=== PATIENT | male | born 1985 | race Hispanic/Latino ===

== ENCOUNTER 2018-07-19 02:19 | Emergency (ER) | payer OTHER, SELFPAY ==
[2018-07-19 02:46] LABS: #Basophils 0.1 thou/uL (0.0-0.2); #Eosinphils 0.2 thou/uL (0.0-0.7); #Lymphocytes 4.9 thou/uL (1.20-3.40); #Monocytes 0.7 thou/uL (0.11-0.59); #Neutrophils 5.4 thou/uL (1.40-6.50); %Basophils 0.8 % (0.0-1.0); %Eosinophils 2.2 % (0.0-10.0); %Lymphocytes 43.2 % (21.0-51.0); %Monocytes 6.4 % (0.0-10.0); %Neutrophils 47.5 % (42.0-75.0); Mean Corpuscular HGB CONC 33.9 g/dL (32.0-36.0); Mean Corpuscular Hemoglobin 29.8 pg (27.0-31.0); Mean Corpuscular Volume 87.9 fL (78.0-98.0); Mean Platelet Volume 9.2 fL (7.4-10.4); Platelet Count 178 thou/uL (130-400); RBC Distribution Width 12.9 % (11.5-14.5); Red Blood Cell (RBC) Count 5.03 mill/uL (4.70-6.10); White Blood Cell (WBC) Count 11.4 thou/uL (4.8-10.8)
[2018-07-19 03:08] LABS: ALT (SGPT) 20 U/L (8-55); AST (SGOT) 12 U/L (5-34); Albumin 4.4 g/dL (3.5-5.0); Alkaline Phosphatase 66 U/L (40-150); Anion Gap 13 mmol/L (10-20); BUN (Urea Nitrogen) 18 mg/dL (8.9-20.6); Bilirubin, Total 0.8 mg/dL (0.2-1.2); Calc. Creatinine Clearance 0 mL/min (70-130); Calcium 9.7 mg/dL (7.8-10.44); Carbon Dioxide 28 mmol/L (22-29); Chloride 104 mmol/L (98-107); Estimated GFR-MDRD 88; Globulin 3.2 g/dL (2.4-3.5); Glucose 112 mg/dL (70-105); Potassium 3.7 mmol/L (3.5-5.1); Protein, Total 7.6 g/dL (6.0-8.3); Sodium 141 mmol/L (136-145)
[2018-07-19] MEDS ORDERED: Ketorolac Tromethamine 30 MG/ML VIAL ONE (03:28)
[2018-07-19] MEDS ORDERED: Ondansetron PF 4 MG/2 ML Vial ONE (03:28)
[2018-07-19] MEDS ORDERED: Morphine 4 MG/ML VIAL ONE (04:07)
[2018-07-19 04:38] LABS: Bilirubin Negative (Negative); Blood, Urine Large (Negative); Clarity CLOUDY (Clear); Glucose, Urine (Dipstick) Negative (Negative); Leukocyte Negative (Negative); Nitrite Negative (Negative); Protein, Urine (Dipstick) Trace mg/dL (Neg-Trace); Specific Gravity, Urine 1.027 (1.002-1.036)
[2018-07-19 04:41] LABS: Bacteria/HPF None Seen HPF (None Seen); Hyaline Casts/LPF 0-3 HYALINE CAST LPF (0-3 Hyaline); Pathc Cast-AUWi Flag 0.13 (0-2.49); RBC/HPF GREATER THAN 50-TNTC HPF (0-3); Squamous Epithelial 0-3 HPF (0-3)
[2018-07-19] MEDS ORDERED: HYDROcodone/Acetaminophen 10/325 mg Tablet ONE (04:52)
--- NOTE | 2018-07-19 07:32 | CT ---
PRELIMINARY REPORT/[facility]/EMERGENCY AFTER HOURS PROCEDURE: EXAM: CT Abdomen and Pelvis Without Contrast EXAM DATE/TIME: 07/19/2018 4:14 AM CLINICAL HISTORY: 32 years old, male; Abdominal pain; Localized; Lower; Patient HX: Er 9. 31m C/O left testicular pain that he noticed when he awoke around 48 hours ago, which he rated at 1/10 over 40 hours. Yesterday evening, pain began increased to 10/10, prompting him to come to ED. Pain has since decreased to 3/10. Reports h/o renal stone many years ago. TECHNIQUE: Imaging protocol: Axial computed tomography images of the abdomen and pelvis without contrast. Coronal reformatted images were created and reviewed. COMPARISON: No relevant prior studies available. FINDINGS: Lungs: No consolidations. ABDOMEN: Liver: No mass. Gallbladder and bile ducts: No calcified stones. No ductal dilation. Pancreas: No mass or ductal dilation. Spleen: No mass. Adrenals: No mass. Kidneys and ureters: Multiple stones in the inferior pole of the left kidney. There is a 5 x 3 mm stone in the mid left ureter at the L4-L5 level resulting in moderate hydroureteronephrosis and perinephric and periureteral fat stranding. Normal right kidney. Stomach and bowel: No obstruction or mucosal thickening. Appendix: No evidence of appendicitis. PELVIS: Bladder: Normal. Reproductive: Normal. ABDOMEN and PELVIS: Intraperitoneal space: No free air or free fluid. Bones/joints: No suspicious bone lesions. Soft tissues: No acute findings. Vasculature: No abdominal aortic aneurysm. Lymph nodes: No lymphadenopathy. IMPRESSION: 1. There is a 5 x 3 mm stone in the mid left ureter resulting in moderate hydroureteronephrosis. 2. Multiple subcentimeter left renal stones. Thank you for allowing us to participate in the care of your patient. Dictated and Authenticated by: Mamie Silva MD 07/19/2018 4:33 AM Central Time ([place] & [place]) FINAL REPORT EMERGENCY AFTER HOURS CT ABDOMEN AND PELVIS: IMPRESSION: I agree with the preliminary report provided. There is a 5 mm proximal left ureteral calculus causing moderate left hydronephrosis. There are numer ous nonobstructing calculi involving the inferior pole of the left kidney. Transcribed Date/Time: 07/19/2018 8:38 AM
--- NOTE | 2018-07-19 07:33 | ULT ---
PRELIMINARY REPORT/[facility]/EMERGENCY AFTER HOURS PROCEDURE: EXAM: US Scrotum and US Duplex Artery and Vein, Scrotum, Complete EXAM DATE/TIME: 07/19/2018 3:23 AM CLINICAL HISTORY: 32 years old, male; Other: Lt testicle pain TECHNIQUE: Imaging protocol: Real-time ultrasound of the scrotum. Real-time duplex ultrasound scan of the arterial and venous flow of the scrotum with B-mode, color Doppler flow and spectral waveform analysis. Complete exam. COMPARISON: No relevant prior studies available. FINDINGS: Right Testicle: Normal flow by color Doppler and spectral waveform analysis of the arterial and venous flow of the right testicle. No testicular mass. The right testicle measures 4.7 x 2.3 x 2.7 cm . Left Testicle: Normal flow by color Doppler and spectral waveform analysis of the arterial and venous flow of the left testicle. No testicular mass. The left testicle measures 4.5 x 2.4 x 3 cm. Epididymides: Right epididymal head cyst measuring 7 mm. Scrotum: Normal. IMPRESSION: 1. Normal sonographic appearance of the testicles. 2. No evidence of testicular torsion. Thank you for allowing us to participate in the care of your patient. Dictated and Authenticated by: Mamie Silva MD 07/19/2018 4:03 AM Central Time ([place] & [place]) FINAL REPORT EMERGENCY AFTER HOURS TESTICULAR ULTRASOUND: IMPRESSION: I agree with the preliminary report provided. No acute sonographic abnormality is evident. There is s table right epididymal head cyst when compared to prior dated October 30, 2011. Transcribed Date/Time: 07/19/2018 8:35 AM
== END 2018-07-19 05:00 | disposition home or self-care (01) ==
LOC: ERS 02:19
DX: N45.1 Epididymitis (principal); N13.2 Hydronephrosis with renal and ureteral calculous obstruction
CPT/HCPCS: 74176; 76870; 80053; 81003; 81015; 85025; 87086; 93976; 96361; 96374; 96375; J1885; J2270; J2405